=== PATIENT | male | born 1990 | race Caucasian/White ===

== ENCOUNTER 2019-11-17 04:25 | Emergency (ER) | payer SELFPAY ==
[~2019-11-17] VITALS: Ht 180.3 cm; Wt 77.1 kg
[2019-11-17 04:32] VITALS: BP_SYST 134
--- NOTE | 2019-11-17 04:32 | NUR ---
Per registration, patient left without being seen after being triaged.
== END 2019-11-17 04:33 | disposition left against medical advice (07) ==
LOC: SED 04:25
DX: L08.9 Local infection of the skin and subcutaneous tissue, unspecified (principal); Z53.21 Procedure and treatment not carried out due to patient leaving prior to being seen by health care provider

== ENCOUNTER 2023-03-24 11:51 | Emergency (ER) | payer MEDICAID ==
[~2023-03-24] VITALS: Ht 172.7 cm; Wt 83.9 kg
[2023-03-24 12:02] VITALS: BP_SYST 143; PULSE 102; RESP 18; TEMP 98.5; O2SAT 98
[2023-03-24] MEDS ORDERED: SULFAMETHOXAZOLE/TRIMETHOPR DS 1 TABLET PO ONE (12:45)
[2023-03-24] MEDS ORDERED: cephALEXin 500 MG CAPSULE PO ONE (12:45)
[2023-03-24 13:17] LABS: BASOPHILS % (AUTO) 0.3 % (0.0-2.0); EOSINOPHILS # (AUTO) 0.2 K/uL (0.0-0.4); EOSINOPHILS % (AUTO) 2.4 % (0.0-4.0); HEMATOCRIT 43.3 % (36-54); HEMOGLOBIN 14.3 g/dL (14.0-18.0); LYMPHOCYTES # (AUTO) 1.6 K/uL (1.0-5.5); LYMPHOCYTES % (AUTO) 16.4 % (20.5-51.5); MEAN CORPUSCULAR HEMOGLOBIN 30 pg (27-31); MEAN CORPUSCULAR HGB CONC 33 % (32-36); MEAN CORPUSCULAR VOLUME 90 fL (79.0-98.0); MONOCYTES # (AUTO) 0.8 K/uL (0.0-1.0); MONOCYTES % (AUTO) 7.8 % (1.7-9.3); NEUTROPHILS # (AUTO) 7.3 K/uL (1.8-7.7); NEUTROPHILS % (AUTO) 73.1 % (40.0-70.0); PLATELET COUNT (AUTO) 179 K/uL (130-430); RED CELL DISTRIBUTION WIDTH 13.3 % (9.0-15.0)
[2023-03-24 13:32] LABS: CALCIUM 9.3 mg/dL (8.4-11.0); CREATININE 0.88 mg/dL (0.55-1.30)
[2023-03-24 13:35] LABS: ALBUMIN 4.3 g/dL (3.4-4.8); TOTAL BILIRUBIN 0.8 mg/dL (0.0-1.0)
[2023-03-24] MEDS ORDERED: SULF1TAB48 PO (13:45)
[2023-03-24] MEDS ORDERED: CEPH-548 PO (13:45)
[2023-03-24 18:32] VITALS: BP_SYST 143; PULSE 102; RESP 18; TEMP 98.5; O2SAT 98
== END 2023-03-24 18:32 | disposition home or self-care (01) ==
LOC: SED 11:51
DX: L03.115 Cellulitis of right lower limb (principal); M79.661 Pain in right lower leg; F17.200 Nicotine dependence, unspecified, uncomplicated; Z88.8 Allergy status to other drugs, medicaments and biological substances; Z79.899 Other long term (current) drug therapy
CPT/HCPCS: 36415; 80053; 83605; 85025; 87040; 87070-TC; 87075-TC; 99283